=== PATIENT | female | born 1975 | race Caucasian/White ===

== ENCOUNTER 2019-05-29 21:33 | Inpatient (IN) | payer MEDICAID ==
[~2019-05-29] VITALS: Ht 165.1 cm; Wt 79.4 kg
[2019-05-29 21:35] VITALS: BP 157/90
--- NOTE | 2019-05-29 21:38 | NUR ---
43 Y/O FEMALE VAG BLEEDING WITH CLOTS, CRAMPING LOWER ABD TO BACK, STARTED AT 15 00HOUR. PATIENT STATES THAT SHE GOES THROUGH A [place] EVERY 5 MINUTES. LMP WAS MARCH 31, 2020. PAIN IS A 7/10 STARTING IN THE LOWER ABDOMEN RADIATING TO THE LOWER BACK. DENIES N/V/D. ERMD MADE AWARE OF STATUS. SIDE RAILSX1. WILL CONTINUE TO MONITOR. PMH: MISCARRIAGE (2014); HEART PALPITATIONS RX:METOPROLOL NKDA
--- NOTE | 2019-05-29 21:38 | NUR ---
TO LOBBY A/W BED AMBULATORY
--- NOTE | 2019-05-29 22:32 | NUR ---
ERMD AT BEDSIDE EVALUATING PATIENT.
[2019-05-29 22:54] LABS: APPEARANCE,URINE SL CLOUDY (CLEAR); BILIRUBIN,URINE NEGATIVE (NEGATIVE); BLOOD, URINE 3+ (NEGATIVE); COLOR,URINE RED (YELLOW); LEUKOCYTE ESTERASE ,URINE NEGATIVE (NEGATIVE); NITRITE, URINE NEGATIVE (NEGATIVE); UGLUCOSE NEGATIVE (NEGATIVE)
[2019-05-29 23:41] LABS: RBC,URINE TOO NUMEROUS TO COUN /HPF (0-5); WBC,URINE 0-5 /HPF (0-5)
[2019-05-29 23:47] LABS: BASOPHILS % (AUTO) 0.4 % (0.0-2.0); EOSINOPHILS # (AUTO) 0.3 K/uL (0-0.4); EOSINOPHILS % (AUTO) 3.3 % (0.0-4.0); HEMOGLOBIN 13.3 g/dL (12.0-16.0); LYMPHOCYTES % (AUTO) 24.3 % (20.5-51.1); MEAN CORPUSCULAR HEMOGLOBIN 29 pg (27-31); MEAN CORPUSCULAR HGB CONC 33 g/dL (33-37); MEAN CORPUSCULAR VOLUME 86.1 fL (80-94); MONOCYTES # (AUTO) 0.5 K/uL (0.8-1.0); NEUTROPHILS # (AUTO) 5.6 K/uL (1.8-7.7); PLATELET COUNT (AUTO) 253 K/uL (140-450); RED BLOOD CELL COUNT(AUTO) 4.65 MIL/uL (4.20-5.40); RED CELL DISTRIBUTION WIDTH 15.5 % (11.6-13.7); WHITE BLOOD COUNT (AUTO) 8.4 K/uL (4.8-10.8)
--- NOTE | 2019-05-29 23:50 | NUR ---
PATIENT SITTING QUIETLY IN BED. VSS. WILL CONTINUE TO MONITOR.
[2019-05-30 00:12] LABS: PROTHROMBIN TIME 9.3 secs (10.8-13.4)
[2019-05-30] MEDS ORDERED: KETOROLAC 15 MG/ML VIAL IVP ONE (00:40)
[2019-05-30] MEDS ORDERED: NACL 0.9% 1,000 ML IV ONE (00:40)
[2019-05-30 01:24] LABS: ANION GAP 8.5 (8-16); CARBON DIOXIDE 30.4 mmol/L (21-32); CREATININE 0.6 mg/dL (0.6-1.3); POTASSIUM 3.9 mmol/L (3.5-5.1)
--- NOTE | 2019-05-30 02:00 | NUR ---
PATIENT IS RESTING WITH EYES CLOSED. VSS. WILL CONTINUE TO MONITOR.
[2019-05-30 04:06] LABS: BASOPHILS % (AUTO) 0.6 % (0.0-2.0); EOSINOPHILS # (AUTO) 0.3 K/uL (0-0.4); EOSINOPHILS % (AUTO) 3.3 % (0.0-4.0); HEMATOCRIT 34.8 % (36-48); HEMOGLOBIN 11.8 g/dL (12.0-16.0); LYMPHOCYTES # (AUTO) 2.1 K/uL (2.5-16.5); LYMPHOCYTES % (AUTO) 27.6 % (20.5-51.1); MEAN CORPUSCULAR HEMOGLOBIN 29 pg (27-31); MEAN CORPUSCULAR HGB CONC 34 g/dL (33-37); MEAN CORPUSCULAR VOLUME 85.4 fL (80-94); MONOCYTES # (AUTO) 0.5 K/uL (0.8-1.0); MONOCYTES % (AUTO) 6.3 % (1.7-9.3); NEUTROPHILS # (AUTO) 4.8 K/uL (1.8-7.7); NEUTROPHILS % (AUTO) 62.2 % (42.2-75.2); PLATELET COUNT (AUTO) 213 K/uL (140-450); RED BLOOD CELL COUNT(AUTO) 4.08 MIL/uL (4.20-5.40); RED CELL DISTRIBUTION WIDTH 15.1 % (11.6-13.7); WHITE BLOOD COUNT (AUTO) 7.7 K/uL (4.8-10.8)
--- NOTE | 2019-05-30 04:20 | NUR ---
ERMD AT BEDSIDE.
--- NOTE | 2019-05-30 05:01 | NUR ---
PATIENT IS RESTING WITH EYES CLOSED AT THIS TIME. VSS. WILL CONTINUE TO MONITOR.
[2019-05-30] MEDS ORDERED: METO25TE2 PO (05:55)
--- NOTE | 2019-05-30 06:00 | NUR ---
PATIENT AMBULATED TO THE RESTROOM
[2019-05-30] MEDS ORDERED: TRA200 PO (06:04)
--- NOTE | 2019-05-30 06:04 | NUR ---
PATIENT AMBULATED BACK TO ROOM WITH STEADY GAIT. DENIES ANY DIZZINESS AT THIS TIME.
[2019-05-30] MEDS ORDERED: MAGN250T6 PO (06:05)
[2019-05-30] MEDS ORDERED: DOCUSATE SODIUM 100 MG GELCAP PO PRN (06:20)
[2019-05-30] MEDS ORDERED: ACETAMINOPHEN 325 MG TAB PO PRN (06:20)
[2019-05-30] MEDS ORDERED: ZOLPIDEM 5 MG TAB PO PRN (06:20)
[2019-05-30] MEDS ORDERED: LORazepam 2 MG/ML VIAL IM/IVP PRN (06:20)
[2019-05-30] MEDS ORDERED: ONDANSETRON 4 MG/2 ML VIAL IM/IVP PRN (06:20)
[2019-05-30] MEDS ORDERED: HYDROcodone/APAP 5/325 MG 1 TAB TAB PO PRN (06:20)
--- NOTE | 2019-05-30 06:41 | NUR ---
STARTED NORMAL SALINE BOLUS 1,000ML; RATE 100ML/HR PER TELE FLOOR ORDERS.
--- NOTE | 2019-05-30 06:45 | NUR ---
Patient will be admitted to care of DR. GUNTER. Admited to TELE 105 B. Belongings list completed. Report to JENELLE DRAKE.
[2019-05-30] MEDS ORDERED: NACL 0.9% 1,000 ML IV SCH (07:00)
--- NOTE | 2019-05-30 07:01 | NUR ---
Note [place] in EDM - 05/30/19 at 0705 by TOI Patient will be admitted to care of DR. GUNTER. Admited to TELE 105 B. Belongings list completed. Report to .
--- NOTE | 2019-05-30 07:05 | NUR ---
RECEIVED REPORT FROM PM CHARGE NURSE SERA. PT IS AWAKE AND ALERT, WALKING AROUND THE ROOM, C/O ABD PAIN AND VAGINAL BLEEDING/PASSING CLOTS. IV SITE L AC 20 G, CURRENTLY INFUSING NS 100 ML/HR. PT IS ON ROOM AIR, SKIN IS INTACT. EXTRA PADS AND DISPOSABLE UNDERWEAR PROVIDED FOR BLEEDING. DR SPARROW AWARE THAT PT IS HAVING HEAVY BLEEDING AND THERE IS A CONSULT ORDERED WITH DR LEE. CALL LIGHT GIVEN WITHIN REACH. WILL CONTINUE TO MONITOR.
[2019-05-30 07:43] LABS: CHOL/HDL RATIO 5.7 (1-4.5); FREE T4 (FREE THYROXINE) 0.96 ng/dL (0.76-1.46); MAGNESIUM 1.8 mg/dL (1.8-2.4); PHOSPHORUS 2.7 mg/dL (2.5-4.9); THYROID STIMULATING HORMONE 1.59 uIU/mL (0.34-3.74)
[2019-05-30] MEDS ORDERED: CRUSHER, PILL MC ONE (08:42)
[2019-05-30] MEDS: MORPHINE SULFATE 2 MG/ML SYR IVP PRN ×2 (08:46→13:37)
[2019-05-30] MEDS ORDERED: METO50TE2 PO (08:49)
[2019-05-30] MEDS ORDERED: DEXT 5% /NACL 0.9% 1,000 ML IV SCH (08:55)
[2019-05-30 09:00] VITALS: BP 111/83
[2019-05-30] MEDS ORDERED: METOPROLOL SUCCINATE 50 MG TABER PO SCH (09:00)
--- NOTE | 2019-05-30 09:08 | NUR ---
PT SEEN BY DR SPARROW.
[2019-05-30] MEDS: METOPROLOL SUCCINATE 50 MG TABER PO SCH (09:13)
--- NOTE | 2019-05-30 09:17 | NUR ---
AM METOPROLOL ADMINISTERED, PT TOLERATED WELL. ADMINISTERED 2 MG IV MORPHINE FOR 8/10 ABD PAIN. WILL REASSESS PAIN WITHIN AN HOUR.
[2019-05-30] MEDS ORDERED: medroxyPROGESTERone 10 MG TAB PO SCH ×2 (10:00→21:00)
--- NOTE | 2019-05-30 10:22 | NUR ---
PATIENT HAS BEEN SCREENED AND CATEGORIZED LOW NUTRITION RISK. PATIENT WILL BE SEEN WITHIN 7 [address] OF ADMISSION. [address]
--- NOTE | 2019-05-30 10:24 | NUR ---
PAIN ASSESSMENT DONE, PT STATES PAIN IS DOWN TO 4/10 AT THIS TIME. ORDERED PO PROVERA ADMINISTERED. SCD'S PLACED. PT IS COMFORTABLE IN BED. WILL CONTINUE TO MONITOR.
[2019-05-30 10:53] LABS: BASOPHILS % (AUTO) 0.4 % (0.0-2.0); EOSINOPHILS # (AUTO) 0.2 K/uL (0-0.4); EOSINOPHILS % (AUTO) 3.4 % (0.0-4.0); LYMPHOCYTES # (AUTO) 1.6 K/uL (2.5-16.5); LYMPHOCYTES % (AUTO) 29.5 % (20.5-51.1); MEAN CORPUSCULAR HEMOGLOBIN 29 pg (27-31); MEAN CORPUSCULAR HGB CONC 33 g/dL (33-37); MEAN CORPUSCULAR VOLUME 86.2 fL (80-94); MONOCYTES # (AUTO) 0.4 K/uL (0.8-1.0); MONOCYTES % (AUTO) 7.2 % (1.7-9.3); NEUTROPHILS # (AUTO) 3.3 K/uL (1.8-7.7); NEUTROPHILS % (AUTO) 59.5 % (42.2-75.2); PLATELET COUNT (AUTO) 228 K/uL (140-450); RED BLOOD CELL COUNT(AUTO) 4.18 MIL/uL (4.20-5.40); RED CELL DISTRIBUTION WIDTH 15.6 % (11.6-13.7); WHITE BLOOD COUNT (AUTO) 5.5 K/uL (4.8-10.8)
[2019-05-30] MEDS: MAGNESIUM OXIDE 400 MG TAB PO SCH (11:16)
[2019-05-30 12:00] VITALS: BP 122/78
--- NOTE | 2019-05-30 12:13 | NUR ---
MALCOLM assessment/discharge plan Basic Screen: Yes Name: [facility] Relationship: mother Pre-Admission Living Arrangements: Lives with Other Other: : Jakob and their children Prior ADL Independent Current Home Health Name/Tel: N/A Current DME/02 Name/Tel: N/A Current Hospice Name/Tel: N/A Current Dialysis Name/Tel: N/A Healthcare Decision Maker: Patient Advance Directive No Information Taught: Community Resources Coping Person Taught: Patient Teaching Tools: Community Resources Verbal Factors Affecting Learning: None Participation Level: Active Evaluation: Gestures Understanding Verbalizes Understanding Educator: MALCOLM Valadez Discipline: Case Mgt/Social Svcs Tentative Discharge Plan Summary: Patient is a 43 year old female admitted for ovarian cyst and vaginal bleed. I met with patient at bedside. Patient alert and oriented x4. Patient lives at home with her family and plans to return home upon discharge. Patient follows up with her pcp regularly and does not have any difficulty filling her prescriptions. She denied hx of mental health and alcohol/substance abuse. Patient is employed as a [employer]. She is not interested in receiving information on Advance Directive. I provided her with education on [employer] www.[email or web address] for community resources. She does not have any questions/concerns at this time. [employer] and/or [employer] will follow up as needed. Signature: MALCOLM Valadez Date: May 30, 2019
--- NOTE | 2019-05-30 13:30 | NUR ---
RECEIVED A CALL FROM DR LEE, PER DR LEE THERE IS NO PROCEDURES NEEDED AT THIS TIME, AND PT CAN BE ON A REGULAR DIET. PT MAY ARRANGE AN OUTPATIENT PROCEDURE.
--- NOTE | 2019-05-30 13:42 | NUR ---
PT C/O ABD PAIN 10/31, PRN MORPHINE ADMINISTERED. WILL REASSESS PAIN WITHIN AN HOUR.
--- NOTE | 2019-05-30 15:01 | NUR ---
PT REMINDED TO PROVIDE A URINE SAMPLE FOR A UDS. SAMPLE CUP PROVIDED.
--- NOTE | 2019-05-30 15:20 | NUR ---
PT IS HAVING AN EKG AT THIS TIME
[2019-05-30] MEDS: NACL 0.9% 1,000 ML IV SCH (15:53)
--- NOTE | 2019-05-30 15:55 | NUR ---
DISCHARGE PLANNING: A 43 Y/O FEMALE PATIENT FROM HOME, WHO CAME IN DUE TO HEAVY VAGINAL BLEEDING. PAST MEDICAL HISTORY INCLUDE ARRHYTHMIA, BLOOD TRANSFUSIONS 2/2 MENORRHAGIA. INITIAL DIAGNOSIS OF OVARIAN CYST AND VAGINAL BLEEDING. CURRENT LABS INCLUDE WBC 5.5, H/H 12.0/36.0, TIBC 344. MRSA NARES PENDING. OB-GYNE CONSULT IN PLACE. DC PLAN TO HOME ONCE STABLE.
[2019-05-30 16:00] VITALS: BP 119/72
--- NOTE | 2019-05-30 18:00 | NUR ---
URINE SAMPLE COLLECTED AND TAKEN TO LAB.
--- NOTE | 2019-05-30 18:10 | NUR ---
PT REPORTS A BIG DECREASE IN VAGINAL BLEEDING COMPARED TO EARLIER TODAY. SHE STATES THAT THE BLEED FEELS MORE LIKE A "NORMAL PERIOD" NOW, RATHER THAN A HEAVY HEMORRHAGE. PT STATES THAT THE "PROVERA PILL HELPED". I INFORMED HER THAT THERE WILL BE ANOTHER DOSE OF PROVERA LATER TONIGHT, AND TWICE PER DAY THEREAFTER.
[2019-05-30 18:26] LABS: BARBITURATE, URINE NEG. ng/ml (NEG <=200); BENZODIAZEPINE, URINE NEG. ng/mL (NEG <=200); CANNABINOID, URINE NEG. ng/mL (NEG <=50); COCAINE, URINE NEG. ng/mL (NEG <=300); OPIATE, URINE POS. ng/mL (NEG <=2000); PHENCYCLIDINE SCREEN,URINE NEG. ng/mL (NEG <=25)
--- NOTE | 2019-05-30 19:15 | NUR ---
ENDORSED PT TO AIRPORT MAINTENANCE CHIEF NURSE IN STABLE CONDITION.
--- NOTE | 2019-05-30 19:20 | NUR ---
RECEIVED PT FROM MARISSA ALMANZAR PT IS AAOX4 COMPLAINTS OF VAGINAL BLEEDING HAS BEEN IMPROVING AND CLOTS TOO , NOT DISTRESS NOTED INITIL ASSESSMENT DONE
[2019-05-30 19:50] VITALS: BP 113/72
--- NOTE | 2019-05-30 21:42 | NUR ---
PT SLEEPING WELL AFTER PAIN MEDIC GIVEN ON TELEMETRY SR
[2019-05-31] VITALS: BP 111/65
--- NOTE | 2019-05-31 01:34 | NUR ---
PT RESTING ON BED NOT ACTIVE VAGINAL BLEEDING AT THIS TIME PT GETTING SLEEP ON TELEMETRY SR
[2019-05-31 04:00] VITALS: BP 111/63
--- NOTE | 2019-05-31 04:45 | NUR ---
;SPONGE BATH GIVEN LINEN CHANGED, PT RESTING ON BED , ON TELEMETRY SR NOT DISTRESS NOTED ,SCANT VAGINAL BLEEDING
--- NOTE | 2019-05-31 06:22 | NUR ---
PT RESTING ON BED AND DENIES ANY PAIN OR DISCOMFORT, NOT ACTIVE VAGINAL BLEEDING NOTED, PT WILL BE ENDORSED TO DAY SHIFT NURSE FOR CONTINUE OF CARE
[2019-05-31 06:49] LABS: FOLIC ACID 8.5 ng/mL (>3.0)
--- NOTE | 2019-05-31 07:05 | NUR ---
RECEIVED BEDSIDE REPORT FROM NIGHTSHIFT NURSE. PT RESTING IN BED UPON ARRIVAL. ABLE TO MAKE NEEDS KNOWN. RESPIRATIONS EVEN AND UNLABORED WITH NO SOB OR RESPIRATORY DISTRESS. SKIN WARM AND DRY TO TOUCH. IV SITE IN LAC 20G IS CLEAN, DRY, AND INTACT. SAFETY MEASURES IN PLACE. WILL CONTINUE TO MONITOR.
[2019-05-31 08:00] VITALS: BP 135/83
[2019-05-31] MEDS ORDERED: KETOROLAC 15 MG/ML VIAL IVP PRN (08:45)
[2019-05-31] MEDS ORDERED: medroxyPROGESTERone 10 MG TAB PO SCH (09:00)
[2019-05-31] MEDS: MAGNESIUM OXIDE 400 MG TAB PO SCH (09:02)
[2019-05-31] MEDS: METOPROLOL SUCCINATE 50 MG TABER PO SCH (09:03)
--- NOTE | 2019-05-31 09:03 | NUR ---
ADMINISTERED SCHED MED PRESCRIBED PER MD ORDER. PT TOLERATED WELL. MEDICATION EDUCATION PERFORMED. PT VERBALIZED UNDERSTANDING. PT CALLED AND COMPLAINED OF PAIN. PRN PAIN MEDICATION ADMINISTERED PRESCRIBED PER MD ORDER. MEDICATION EDUCATION PERFORMED. PT VERBALIZED UNDERSTANDING. SAFETY MEASURES IN PLACE. WILL CONTINUE TO MONITOR
--- NOTE | 2019-05-31 10:59 | NUR ---
HOURLY ROUNDING. PT RESTING IN BED AND TALKING ON THE PHONE. ABLE TO MAKE NEEDS KNOWN. RESPIRATIONS EVEN AND UNLABORED WITH NO SOB OR RESPIRATORY DISTRESS. SKIN WARM AND DRY TO TOUCH. SAFETY MEASURES IN PLACE. WILL CONTINUE TO MONITOR
[2019-05-31] MEDS: NACL 0.9% 1,000 ML IV SCH (11:42)
--- NOTE | 2019-05-31 11:43 | NUR ---
ADMINISTERED SCHED IVF PRESCRIBED PER MD ORDER. PT TOLERATED WELL. MEDICATION EDUCATION PERFORMED. PT VERBALIZED UNDERSTANDING. SAFETY MEASURES IN PLACE. WILL CONTINUE TO MONITOR
[2019-05-31 12:00] VITALS: BP 127/88
[2019-05-31] MEDS: MORPHINE SULFATE 2 MG/ML SYR IVP PRN (12:25)
--- NOTE | 2019-05-31 12:25 | NUR ---
PT CALLED AND COMPLAINED OF SEVERE PAIN. PRN PAIN MED ADMINISTERED PRESCRIBED PER MD ORDER. PT TOLERATED WELL. MEDICATION EDUCATION PERFORMED. PT VERBALIZED UNDERSTANDING. SAFETY MEASURES IN PLACE. WILL CONTINUE TO MONITOR
[2019-05-31] MEDS ORDERED: MEDR10TA PO (12:30)
--- NOTE | 2019-05-31 13:04 | NUR ---
PT IS AWARE OF DISCHARGE AND REQUESTED TO LEAVE AT 1630 WHEN HER GETS OFF WORK. SAFETY MEASURES IN PLACE. WILL CONTINUE TO MONITOR
[2019-05-31 13:55] VITALS: BP 127/88
--- NOTE | 2019-05-31 15:04 | NUR ---
PT RESTING IN BED UPON ARRIVAL. ABLE TO MAKE NEEDS KNOWN. RESPIRATIONS EVEN AND UNLABORED WITH NO SOB OR RESPIRATORY DISTRESS. SKIN WARM AND DRY TO TOUCH. SAFETY MEASURES IN PLACE. WILL CONTINUE TO MONITOR
[2019-05-31 16:00] VITALS: BP 135/83
--- NOTE | 2019-05-31 16:15 | NUR ---
WENT OVER DC INSTRUCTIONS WITH PT. PT SIGNED APPROPRIATE DOCUMENTS. INSTRUCTED PT TO VISIT ED FOR ANY SIGNS OF DISTRESS. PT VERBALIZED UNDERSTANDING. INTACT IV CANNULA AND ID BANDS REMOVED. PT CHANGED INTO OWN CLOTHING AND GATHERED THEIR BELONGINGS. TELE MONITOR REMOVED AND RETURNED TO UT ROOM. PT HAD FLU VACCINE AND DID NOT QUALIFY FOR PNA VACCINE. PT WHEELED TO PRIVATE VEHICLE TO RETURN HOME. PT IS STABLE.
== END 2019-05-31 16:15 | disposition home or self-care (01) | DRG 532 ==
LOC: MED 21:33 → MTU 05-30 06:17
PROVIDERS: ADMIT General Practice; ATTEND General Practice
DX: N93.8 Other specified abnormal uterine and vaginal bleeding (principal); D28.0 Benign neoplasm of vulva; R31.9 Hematuria, unspecified; Z90.49 Acquired absence of other specified parts of digestive tract; Z98.891 History of uterine scar from previous surgery; I49.9 Cardiac arrhythmia, unspecified; E78.5 Hyperlipidemia, unspecified
CPT/HCPCS: 36415; 71045; 72193; 76830; 80048; 80305; 81001; 82150; 82607; 82728; 82746; 83036; 83540; 83690; 83735; 83880; 84100; 84439; 84443; 84484; 84702; 85025; 85045; 85610; 85730; 86886; 86900; 86901; 87081; 96361; 96374; 99285; J1885; J2270; J2405; J7030; J7042; Q0092; Q9967

== ENCOUNTER 2021-02-02 17:42 | Emergency (ER) | payer MEDICAID, OTHER ==
[~2021-02-02] VITALS: Ht 165.1 cm; Wt 83.9 kg
[~2021-02-02 17:42] MED LIST: MAGN250T6 PO; MEDR10TA PO; METO50TE2 PO
[2021-02-02 17:44] VITALS: BP 169/100
--- NOTE | 2021-02-02 18:40 | NUR ---
PT TAKEN TO BED #1
--- NOTE | 2021-02-02 19:30 | NUR ---
seen and examined by anu
[2021-02-02] MEDS ORDERED: FAMOTIDINE 20 MG/2 ML VIAL IVP ONE (19:50)
[2021-02-02] MEDS ORDERED: ONDANSETRON 4 MG/2 ML VIAL IVP ONE (19:50)
--- NOTE | 2021-02-02 19:50 | NUR ---
medicated as per ERMDS order, patient tolerated well.
[2021-02-02 20:09] LABS: BASOPHILS # (AUTO) 0.1 K/uL (0.00-0.22); BASOPHILS % (AUTO) 0.9 % (0.0-2.0); EOSINOPHILS # (AUTO) 0.1 K/uL (0-0.4); EOSINOPHILS % (AUTO) 1.7 % (0.0-4.0); HEMATOCRIT 28.8 % (36-48); LYMPHOCYTES # (AUTO) 2.1 K/uL (2.5-16.5); LYMPHOCYTES % (AUTO) 27.7 % (20.5-51.1); MEAN CORPUSCULAR HEMOGLOBIN 22 pg (27-31); MEAN CORPUSCULAR HGB CONC 31 g/dL (33-37); MONOCYTES # (AUTO) 0.5 K/uL (0.8-1.0); NEUTROPHILS # (AUTO) 4.9 K/uL (1.8-7.7); NEUTROPHILS % (AUTO) 63.7 % (42.2-75.2); PLATELET COUNT (AUTO) 345 K/uL (140-450); RED BLOOD CELL COUNT(AUTO) 4.12 MIL/uL (4.20-5.40); RED CELL DISTRIBUTION WIDTH 19.8 % (11.6-13.7); WHITE BLOOD COUNT (AUTO) 7.6 K/uL (4.8-10.8)
[2021-02-02 20:21] LABS: APPEARANCE,URINE CLEAR (CLEAR); BILIRUBIN,URINE NEGATIVE (NEGATIVE); BLOOD, URINE TRACE-L (NEGATIVE); COLOR,URINE ORANGE (YELLOW); LEUKOCYTE ESTERASE ,URINE NEGATIVE (NEGATIVE); NITRITE, URINE NEGATIVE (NEGATIVE); UGLUCOSE NEGATIVE (NEGATIVE)
[2021-02-02 20:25] LABS: ANION GAP 14.4 (8-16); CREATININE 0.6 mg/dL (0.6-1.3); POTASSIUM 4.4 mmol/L (3.5-5.1); TOTAL BILIRUBIN 0.2 mg/dL (0.0-1.0)
[2021-02-02 20:37] LABS: WBC,URINE 0-5 /HPF (0-5)
[2021-02-02] MEDS ORDERED: KETOROLAC 15 MG/ML VIAL IVP ONE (20:45)
[2021-02-02] MEDS ORDERED: HYDROcodone/APAP 5/325 MG 1 TAB TAB PO ONE (23:15)
[2021-02-03] MEDS ORDERED: ACET-9525 PO (00:30)
--- NOTE | 2021-02-03 00:55 | NUR ---
ALL RESULTS BACK AND NOTED BY ERMD AND FOR D/C
[2021-02-03 01:10] VITALS: BP 121/78
--- NOTE | 2021-02-03 01:10 | NUR ---
Patient discharged with v/s stable. Written and verbal after care instructions given and explained. Patient alert, oriented and verbalized understanding of instructions. Ambulatory with steady gait. All questions addressed prior to discharge. ID band removed. Patient advised to follow up with PMD. Rx of HYDROCODONE given. Patient educated on indication of medication including possible reaction and side effects. Opportunity to ask questions provided and answered.
== END 2021-02-03 01:10 | disposition home or self-care (01) ==
LOC: MED 17:42
DX: R10.11 Right upper quadrant pain (principal); R19.09 Other intra-abdominal and pelvic swelling, mass and lump; D64.9 Anemia, unspecified; I10 Essential (primary) hypertension
CPT/HCPCS: 36415; 74176; 76856; 80053; 81001; 81025; 83690; 85025; 93976; 96374; 96375; 99285; J1885; J2405; J3490; Q0092

== ENCOUNTER 2021-02-10 17:13 | Emergency (ER) | payer OTHER ==
[~2021-02-10 17:13] MED LIST changes: +ACET-9525 PO
[2021-02-10] MEDS ORDERED: ONDANSETRON 4 MG/2 ML VIAL ONE (23:07)
[2021-02-10] MEDS ORDERED: MORPHINE SULFATE 4 MG/ML SYR ONE (23:07)
--- NOTE | 2021-02-11 01:00 | NUR ---
REFER TO PAPER CHARTING DURING DOWNTIME FOR PAST NOTES.
[2021-02-11 01:24] LABS: POTASSIUM 3.7 mmol/L (3.5-5.1)
[2021-02-11 01:25] LABS: CARBON DIOXIDE 27.7 mmol/L (21-32)
[2021-02-11 01:27] LABS: CREATININE 0.6 mg/dL (0.6-1.3)
[2021-02-11 01:28] LABS: TOTAL BILIRUBIN 0.3 mg/dL (0.0-1.0)
[2021-02-11 01:29] LABS: ALBUMIN 4.1 g/dL (3.4-5.0)
[2021-02-11 01:31] LABS: HEMATOCRIT 28.5 % (36-48); HEMOGLOBIN 8.8 g/dL (12.0-16.0); RED BLOOD CELL COUNT(AUTO) 4.11 MIL/uL (4.20-5.40)
[2021-02-11 01:32] LABS: BASOPHILS % (AUTO) 0.6 % (0.0-2.0); EOSINOPHILS # (AUTO) 0.2 K/uL (0-0.4); EOSINOPHILS % (AUTO) 2.8 % (0.0-4.0); LYMPHOCYTES # (AUTO) 2.4 K/uL (2.5-16.5); LYMPHOCYTES % (AUTO) 34.3 % (20.5-51.1); MEAN CORPUSCULAR HEMOGLOBIN 21 pg (27-31); MEAN CORPUSCULAR HGB CONC 31 g/dL (33-37); MEAN CORPUSCULAR VOLUME 69.2 fL (80-94); MONOCYTES # (AUTO) 0.5 K/uL (0.8-1.0); MONOCYTES % (AUTO) 7.2 % (1.7-9.3); NEUTROPHILS # (AUTO) 3.9 K/uL (1.8-7.7); NEUTROPHILS % (AUTO) 55.1 % (42.2-75.2); PLATELET COUNT (AUTO) 390 K/uL (140-450); RED CELL DISTRIBUTION WIDTH 19.4 % (11.6-13.7)
[2021-02-11 01:33] LABS: APPEARANCE,URINE CLEAR (CLEAR); COLOR,URINE YELLOW (YELLOW)
[2021-02-11 01:34] LABS: BILIRUBIN,URINE NEGATIVE (NEGATIVE); BLOOD, URINE NEGATIVE (NEGATIVE); LEUKOCYTE ESTERASE ,URINE NEGATIVE (NEGATIVE); NITRITE, URINE NEGATIVE (NEGATIVE); UGLUCOSE NEGATIVE (NEGATIVE)
[2021-02-11] MEDS ORDERED: ACET-8386 PO ×2 (02:42→03:13)
[2021-02-11] MEDS ORDERED: KETOROLAC 30 MG/ML VIAL IVP ONE (02:45)
--- NOTE | 2021-02-11 03:13 | NUR ---
Patient discharged with v/s stable. Written and verbal after care instructions given and explained. Patient alert, oriented and verbalized understanding of instructions. Ambulatory with steady gait. All questions addressed prior to discharge. ID band removed. Patient advised to follow up with PMD. Rx of HYDROCODONE/ACETAMINOPHEN 5-325 given. Patient educated on indication of medication including possible reaction and side effects. Opportunity to ask questions provided and answered.
== END 2021-02-11 03:13 | disposition home or self-care (01) ==
LOC: MED 17:13
DX: R10.11 Right upper quadrant pain (principal); I10 Essential (primary) hypertension; Z79.899 Other long term (current) drug therapy; Z90.49 Acquired absence of other specified parts of digestive tract
CPT/HCPCS: 36415; 74176; 80053; 83690; 85025; 96374; 99284; J1885; J2270; J2405